=== PATIENT | female | born 1945 | race Caucasian/White ===

== ENCOUNTER → 2016-04-17 | Outpatient (CLI) | payer OTHER ==
--- NOTE | 2016-04-17 17:33 | MA ---
Screening Digital Mammogram With iCAD Analysis Clinical Indications: Routine screening. Technique: Standard cephalocaudal projections are obtained. Digital breast tomosynthesis was performe d in the MLO projection with reconstruction at 1.0 mm slice thickness and composite MLO views reconst ructed. This examination is processed by the iCAD computer aided detection system. Comparison: April 2015, March 2014, March 2013, February 2012, February 2011, January 2010, S isiah 2008. Left breast ultrasound May 04, 2015. Breast density: Type B; Scattered fibroglandular densities. Findings: CAD was reviewed. No spiculated masses, suspicious calcifications or secondary signs of mal ignancy are seen. There has been no significant change in the appearance of either breast. Nodular ar ea in the upper-outer left breast which was demonstrated to represent a cyst is unchanged. Impression: Benign mammography, BI-RADS 2. Recommendation: Routine mammographic screening in one year as long as physical examination is negativ [facility] will send a result letter to the patient. Negative mammography should not preclude additional workup of a clinically suspicious finding. The patient's information is entered into a reminder system with a target due date for her next mammo gram.
== END ==
LOC: FIMAGING 14:44
DX: Z12.31 Encounter for screening mammogram for malignant neoplasm of breast (principal)
CPT/HCPCS: G0202

== ENCOUNTER 2016-12-12 05:55 | Inpatient (IN) | payer OTHER ==
[2016-12-12] MEDS ORDERED: TRANEXAMIC ACID 1,300 MG in NS 100 ML IV ONE (06:00)
[2016-12-12] MEDS ORDERED: ROPIVACAINE 0.2% 80 MG, EPINEPHrine 0.2 MG in BAG 0 ML IU ONE (06:00)
[2016-12-12] MEDS ORDERED: FAMOTIDINE 20 MG TAB PO ONE (06:08)
[2016-12-12] MEDS ORDERED: ACETAMINOPHEN 325 MG TAB PO ONE (06:08)
[2016-12-12] MEDS ORDERED: ceFAZolin 2 GM/DEXTROSE 100 ML IV ONE (06:08)
[2016-12-12] MEDS ORDERED: POVIDONE-IODINE 20 ML in SODIUM CL IRRIG SOLUTION 500 ML IRR ONE (06:08)
[2016-12-12] MEDS ORDERED: DEXAMETHASONE 4 MG/ML VIAL IVP ONE (06:08)
[2016-12-12] MEDS ORDERED: LIDOCAINE 1% 2 ML INJ ID PRN (06:09)
[2016-12-12] MEDS ORDERED: LR 1,000 ML IV ONE (06:09)
[2016-12-12] MEDS ORDERED: ceFAZolin 1 GM/5 ML SYR ONE (06:34)
[2016-12-12] MEDS ORDERED: DIPHENOXYLATE/ATROPINE LOMOTIL 1 TAB PO PRN (07:01)
[2016-12-12] MEDS ORDERED: BISACODYL 10 MG SUPP PR PRN (07:01)
[2016-12-12] MEDS ORDERED: ONDANSETRON 4 MG/2 ML VIAL IVP PRN ×2 (07:01→08:41)
[2016-12-12] MEDS ORDERED: ONDANSETRON DISINTEGRATING 4 MG TAB PO PRN (07:01)
[2016-12-12] MEDS ORDERED: MIDAZOLAM 2 MG/2 ML VIAL IVP ONE (07:01)
[2016-12-12] MEDS ORDERED: TEMAZEPAM 15 MG CAP PO PRN (07:01)
[2016-12-12] MEDS ORDERED: POLYETHYLENE GLYCOL 3350 17 GM PKT PO PRN (07:01)
[2016-12-12] MEDS ORDERED: MAGNESIUM HYDROXIDE 30 ML UDCUP PO PRN (07:01)
[2016-12-12] MEDS ORDERED: PROMETHAZINE HCL 25 MG/ML INJ IVP PRN (07:01)
[2016-12-12] MEDS ORDERED: diphenhydrAMINE 25 MG CAP PO PRN (07:01)
[2016-12-12] MEDS ORDERED: LACTULOSE 20 GM/30 ML UDCUP PO PRN (07:01)
--- NOTE | 2016-12-12 07:01 | PDHPUP ---
History & Physical Update H&P update statement: This history and physical update is based on an assessment of the patient which was completed after admission or registration (within 24 hours), but prior to the surgery/procedure. H&P update: H&P reviewed & patient examined, no change in patient's condition since H&P completed
--- NOTE | 2016-12-12 07:01 | PDANEPAE ---
ANE History of Present Illness 71 yo for chucho htn ANE Past Medical History - Cardiovascular History Hx Hypertension: Yes Hx Arrhythmias: No Hx Chest Pain: No Hx Coronary Artery / Peripheral Vascular Disease: No Hx CHF / Valvular Disease: No Hx Palpitations: No - Pulmonary History Hx COPD: No Hx Asthma/Reactive Airway Disease: No Hx Recent Upper Respiratory Infection: No Hx Oxygen in Use at Home: No Hx Sleep Apnea: No Sleep Apnea Screening Result - Last Documented: Negative - Neurologic History Hx Cerebrovascular Accident: No Hx Seizures: No Hx Dementia: No - Endocrine History Hx Diabetes: No Endocrine History Comment: "watching thyroid" -nodule - Renal History Hx Renal Disorders: No - Liver History Hx Hepatic Disorders: No - Neurological & Psychiatric Hx Hx Neurological and Psychiatric Disorders: Yes Neurological / Psychiatric History Comment: 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 - Cancer History Hx Cancer: No - Congenital Disorder History Hx Congenital Disorders: No - GI History Hx Gastrointestinal Disorders: Yes Gastrointestinal History Comment: acid reflux-on Rx - Other Health History Other Health History: OA Left hip; knees -OA; nasocort - allergies? - Chronic Pain History Chronic Pain: No - Surgical History Prior Surgeries: L achilles tendon -2008. L peronius longus ligament s '12. hysterectomy 1994. R bunionectomy ' ANE Review of Systems Review of Systems: - Exercise capacity METS (RN): 4 METS ANE Patient History - Allergies Allergies/Adverse Reactions: NSAIDS (Non-Steroidal Anti-Inflamma Allergy (Severe, Verified 12/12/16 06:14) Other-Enter Comments - Home Medications Home medications: home medication list seen and reviewed Home Medications: Acetaminophen [Tylenol 325mg (*)] 4 tab PO TID 11/23/16 [Last Taken 12/11/16 21: 00] Cholecalciferol Vit D3 [Vitamin D3 (*)] 5,000 units PO DAILY 11/23/16 [Last Taken 12/05/16] Citalopram Hydrobromide [Citalopram HBr] 60 mg PO DAILY 11/23/16 [Last Taken 09/22 05:15] Herbals/Supplements -Info Only 1 ea PO DAILY 11/23/16 [Last Taken 12/05/16] Lisinopril/Hctz 20/12.5MG [Zestoretic/Prinzide 20/12.5MG (*)] 1 ea PO DAILY18 [Last Taken 12/11/16 08:00] Omeprazole [Prilosec 20 mg] 20 mg PO DAILY 11/23/16 [Last Taken 12/12/16 05:15] Triamcinolone Acetonide [Nasacort] 1 spray EACHNARE HS 11/23/16 [Last Taken 08/22 21:00] traMADol [Ultram 50 mg (*)] 50 mg PO HS PRN 11/23/16 [Last Taken 12/09/16] - NPO status NPO Status: no food or drink >8 hours NPO Since - Liquids (Date): 12/11/16 NPO Since - Liquids (Time): 20:00 NPO Since - Solids (Date): 12/11/16 NPO Since - Solids (Time): 20:00 - Anes Hx Anes Hx: no prior problems - Smoking Hx Smoking Status: Never smoked ANE Labs/Vital Signs - Vital Signs Blood Pressure: 107/64 Heart Rate: 65 Respiratory Rate: 16 O2 Sat (%): 93 Height: 5 ft 5 in Weight: 65.771 kg ANE Physical Exam - Airway Neck exam: FROM Mallampati Score: Class 2 Mouth exam: normal dental/mouth exam - Pulmonary Pulmonary: no respiratory distress - Cardiovascular Cardiovascular: regular rate and rhythym - ASA Status ASA Status: II ANE Anesthesia Plan Anesthesia Plan: spinal
[2016-12-12] MEDS ORDERED: traMADol 50 MG TAB PO PRN (07:06)
[2016-12-12] MEDS ORDERED: PROPOFOL/EMULSION 500 MG/50 ML BOTTLE IV ONE ×3 (07:13→08:27)
[2016-12-12] MEDS ORDERED: TRANEXAMIC ACID 650 MG TAB PO SCH (07:15)
[2016-12-12] MEDS ORDERED: LR 1,000 ML IV SCH (07:30)
[2016-12-12] MEDS ORDERED: fentaNYL 100 MCG/2 ML INJ ONE ×3 (07:40→09:54)
[2016-12-12] MEDS ORDERED: HYDROmorphONE/DILAUDID 1 MG/ML SYR IVP PRN (08:41)
[2016-12-12] MEDS ORDERED: NALOXONE HCL 0.4 MG/ML INJ IVP PRN (08:41)
--- NOTE | 2016-12-12 08:55 | POSTOPPROG ---
Post Op Note Date of Operation: 12/12/16 Surgeon: Arthur Dorsey Marker Shipments: Venkatesh Mott/Sydnee Choi Anesthesiologist: Kelby Anesthesia: IV Sedation, Spinal Post-op Diagnosis: Left hip severe degenerative arthritis. Inf/Abcess present in the surg proc area at time of surgery?: No EBL: 100-500
[2016-12-12] MEDS ORDERED: FAMOTIDINE 20 MG TAB PO SCH (09:00)
[2016-12-12] MEDS ORDERED: CITALOPRAM HYDROBROMIDE 60 MG PO SCH (09:00)
--- NOTE | 2016-12-12 09:10 | POSTANESTH ---
Post Anesthetic Evaluation Cardiovascular Status: Normal, Stable Respiratory Status: Normal, Stable Level of Consciousness/Mental Status: Can Participate in Eval Pain Control: Adequate, Prn Tx Ordered Nausea/Vomiting Control: Adequate, Prn Tx Ordered
[2016-12-12] MEDS: fentaNYL 100 MCG/2 ML INJ IVP PRN ×4 (09:26→10:08)
--- NOTE | 2016-12-12 09:35 | GOP ---
[f rep st] OPERATIVE REPORT DATE OF OPERATION: 12/12/2016 SURGEON: Arthur Dorsey MD CHARGE AUDITOR: Venkatesh Mott CFA, and Sydnee Choi RN. ANESTHESIA: A combination of Marcaine, spinal, and IV sedation. ANESTHESIOLOGIST: Dr. Lama. PREOPERATIVE DIAGNOSIS: Left hip severe degenerative arthritis. POSTOPERATIVE DIAGNOSIS: Left hip severe degenerative arthritis. PROCEDURE PERFORMED: Left total hip arthroplasty, ceramic femoral head on highly cross-linked polyet hylene cup liner. FINDINGS: DESCRIPTION OF PROCEDURE: The patient was given 2 g of IV Ancef preoperatively within 60 minutes of surgery. She also received IV tranexamic acid at a dose of 20 mg/kg. She was placed on the operatin g room table and given spinal anesthesia with Marcaine by Dr. Lama. She was then placed supine a nd given IV sedation. A Dillard catheter was not used. She wore a EDA stocking and an SCD on the nono perative leg. She was rolled to the left lateral decubitus position. The position was secured with the pegboard table attachment. An axillary roll was used, and all pressure points were carefully pad ded. I was careful to lock her pelvis in a rigid vertical position. Her perineum was isolated with plastic adhesive drapes. The left hip and left lower extremity were prepped with ChloraPrep. They w ere draped free using sterile sheets, stockinette, and Ioban plastic drapes. The [employer] time-out was performed to verify the correct surgical side and site, an d the correct patient identity. The [place] time-out was also performed. I made a 4- to 5-inch straight oblique posterolateral hip skin incision. Subcutaneous tissues were s harply divided, and hemostasis was obtained using electrocautery. The fascia anastacio was identified and split along the axis of its fibers. I curved posteriorly and proximally, and split the fascia of th e gluteus deny, and bluntly split the muscle fibers in line with their orientation. The Charnley self-retaining retractor was inserted. Her sciatic nerve was located, partially exposed, and protect ed throughout the procedure. The external rotators and the posterior hip capsule were divided as sep arate layers at the base of the femoral neck, tagged, and reflected posteriorly. A smooth 1/8-inch S teinmann pin was inserted vertically into the ilium, superior to the acetabulum. A 1/8-inch drill bi t was inserted vertically into the greater trochanter and parallel to the first pin. The distance be tween the 2 was measured for leg length reference. Her femoral head was dislocated posteriorly. Sev ere degenerative changes were present on the femoral head. Her femoral neck was osteotomized at the appropriate level and inclination. I was careful to preserve all her posterior capsule and most of the anterior capsule. The remnant of her damaged labrum was excised. I prepared the femur first. This allowed me to certified nurses' aide the amount of natural femoral neck anteversion. This, in turn, allowed me to later determine the correct amount of cup anteversion. She had approx imately 12 to 15 degrees of natural femoral neck anteversion. Then, the canal was opened laterally w ith a box chisel. I hand-broached sequentially up to a size 5. I was using a Palma Accolade II st em. I used a size 5 broach as a trial stem. I was careful to lateralize adequately. Appropriate retractors were inserted to expose the acetabulum. The acetabulum was reamed sequentiall y up to 51 mm. I selected a 52 mm Brookside Tritanium solid-backed hemispherical shell. This was suzan ed securely into place in the proper degree of inclination and anteversion. I used a transverse acet abular ligament and other acetabular bony landmarks to help me properly orient the cup. Fixation was secure, and I did not think supplemental screws were necessary. I inserted a screw-in metal dome ho le plug. I removed some small anterior acetabular osteophytes with an osteotome and rongeur. I performed a series of trial reductions to determine length and stability. I concluded that the siz e 5 high-offset stem with a 0 mm neck length, a 32 mm head, and a 0-degree liner gave me the proper c ombination of appropriate length and good anterior and posterior stability. She was a few millimeter s short preoperatively, and I was intentionally lengthening her a small amount. The 0-degree Palma X3 highly cross-linked polyethylene liner was inserted and tapped securely into place. I selected the Brookside Accolade II stem in a size 5 with high offset. This was inserted pres s-fit and was very tight. I did 1 final trial reduction and confirmed that the 0 neck length with th e 32 mm head was the proper combination. The Brookside Biolox Delta ceramic head, with an outside diam eter of 32 mm and a neck length of 0 mm, was tapped securely onto the clean trunnion. The acetabulum was irrigated, cleaned, and the hip was reduced 1 final time. She had excellent anterior and posterior stability and appropriate lengthening. 40 mL of the joint anesthetic cocktail was injected into the capsule, the deep musculature, and the s ubcutaneous tissues around the skin edges. The joint was thoroughly irrigated 1 final time with a di lute Betadine solution. Her sciatic nerve was reinspected and looked unharmed. The external rotators and the posterior hip c apsule were repaired in separate layers with #2 FiberWire sutures through drill holes in the greater trochanter. This provided a strong posterior capsular and external rotator repair. The fascia anastacio was closed first with two #2 [id number] FiberWire sutures, followed by a running #2 barbed Ethic on Stratafix PDO suture. Subcutaneous tissues were closed with a running 0 barbed Ethicon Stratafix Monoderm suture. The skin was closed with a running 3-0 barbed Ethicon Stratafix Monoderm subcuticul ar suture. The skin edges were reapproximated and sealed with Dermabond glue. The wound was covered with a 9 cm x 25 cm AquacStemBioSys surgical dressing. A long-leg EDA stocking and SCD were applied to her right lower extremity. She wore a stocking and S CD on the opposite leg during the procedure. An abduction pillow was placed between her knees. She was awakened from anesthesia and rolled to the supine position on her [facility]. She was taken to PACU in satisfactory condition. There were no recognized intraoperative complications. Her bloo d pressure was somewhat high during portions of the operation. She bled more than usual. The estima eda blood loss was about 400 mL. I used a Palma Tritanium hemispherical solid-backed acetabular shell with an outside diameter of 52 mm. The liner was a Palma X3 0-degree highly cross-linked liner with an inside diameter of 32 mm. The femoral component was a Brookside press-fit high-offset Accolade II stem in a size 5. Her femora l head was a Brookside Biolox Delta ceramic head, with a 0 neck length and a 32 mm outside diameter. Venkatesh Mott and Sydnee Choi acted as surgical assistants. Their assistance was a medical necessi ty for safe completion of the procedure. /[id number]/MODL
[2016-12-12] MEDS: TRANEXAMIC ACID 650 MG TAB PO SCH ×2 (11:18→20:15)
[2016-12-12] MEDS: oxyCODONE IR 5 MG TAB PO PRN ×5 (11:18→23:50)
[2016-12-12] MEDS: CITALOPRAM 20 MG TAB PO SCH (11:19)
[2016-12-12] MEDS: SENNOSIDES/DOCUSATE SODIUM TAB PO SCH ×2 (11:19→20:15)
[2016-12-12] MEDS: FERROUS SULFATE 140 MG TAB.ER PO SCH (11:19)
[2016-12-12] MEDS: CYCLOBENZAPRINE 10 MG TAB PO PRN ×2 (12:13→20:16)
[2016-12-12] MEDS: ceFAZolin 2 GM/DEXTROSE 100 ML IV SCH ×2 (14:08→21:30)
[2016-12-12] MEDS ORDERED: LISINOPRIL/HCTZ 20/12.5MG 1 EA TAB PO SCH (18:00)
[2016-12-12] MEDS: FAMOTIDINE 20 MG TAB PO SCH (20:15)
[2016-12-12] MEDS ORDERED: Triamcinolone Acetonide [Nasacort] 1 SPRAY EACHNARE SCH (21:00)
[2016-12-12] MEDS ORDERED: ASPIRIN 325 MG TAB PO SCH (21:00)
[2016-12-13] MEDS: oxyCODONE IR 5 MG TAB PO PRN (03:57)
[2016-12-13] MEDS: CYCLOBENZAPRINE 10 MG TAB PO PRN (03:57)
[2016-12-13] MEDS: TRANEXAMIC ACID 650 MG TAB PO SCH (03:57)
[2016-12-13 05:40] LABS: HEMATOCRIT 30.1 % (38.0-47.0); HEMOGLOBIN 10.4 g/dL (12.6-16.3)
[2016-12-13 07:57] VITALS: PULSE 86; RESP 14; TEMP 98.9; O2SAT 95
--- NOTE | 2016-12-13 08:03 | SOAPPROG ---
SOAP Progress Note Assessment/Plan: Assessment: Patient is doing well POD 1 s/p L MANPREET Pain management: pain is well controlled on oral pain meds. VTE ppx: recommend lovenox daily x 2 weeks, cont EDA and SCDs Anemia: level is expected initially postop. Asymptomatic. Continue to monitor D/c planning: d/c to home today pending release from PT Plan: 12/13/16 08:02 Objective: Vital Signs Temp Pulse Resp BP Pulse Ox 37.2 C 86 14 127/72 H 95 12/13/16 07:56 12/13/16 07:56 12/13/16 07:56 12/13/16 07:56 12/13/16 07:56 Laboratory Results 12/13/16 05:10 12/12/16 12/13/16 12/14/16 05:59 05:59 05:59 Intake Total 1450 Output Total 2450 Balance -1000 ICD10 Worksheet Patient Problems: Problems Problem Status Onset Osteoarthritis of left hip Acute
[2016-12-13] MEDS ORDERED: ENOXAPARIN 40 MG/0.4 ML SYR SC SCH (09:00)
[2016-12-13] MEDS ORDERED: LISINOPRIL/HCTZ 20/12.5MG 1 EA TAB PO SCH (09:00)
--- NOTE | 2016-12-13 09:09 | GDS ---
[f rep st] DISCHARGE SUMMARY ADMISSION DIAGNOSIS: Severe left hip osteoarthritis. DISCHARGE DIAGNOSIS: Severe left hip osteoarthritis. OPERATION PERFORMED: Left total hip arthroplasty, posterior approach. POSTOPERATIVE COMPLICATIONS: None. CONDITION ON DISCHARGE: Improved. HOSPITAL COURSE: The patient was admitted to the hospital on the day of surgery. Her admission CBC was normal. The same day, under a combination of IV sedation and Marcaine spinal anesthesia, the patient underwent a left total hip arthroplasty. A Dillard catheter was not used. The patient was treated with multimodal DVT prophylaxis, including Lovenox, SCDs , and EDA stockings. On the 1st postoperative day, her hemoglobin and hematocrit were 10.4 and 30.1. She did not require any transfusion. She was seen by Physical Therapy and made good progress with hip range of motion exercises and ambulation. By the time of discharge, she was independent with her walker and afebrile. DISPOSITION: The patient is discharged to her home. She will go directly to outpatient physical therapy in 10-14 days. Follow up with Dr. Dorsey in 3 weeks as planned. She has a prescription at home for oxycodone and tramadol. Zofran for nausea. Lovenox daily x14 days, since she is NSAID intolerant. She will call the office if she has any problems prior to her followup visit. /[id number]/MODL MTDD
[2016-12-13] MEDS: FERROUS SULFATE 140 MG TAB.ER PO SCH (09:39)
[2016-12-13] MEDS: FAMOTIDINE 20 MG TAB PO SCH (09:40)
[2016-12-13] MEDS: CITALOPRAM 20 MG TAB PO SCH (09:40)
[2016-12-13] MEDS: SENNOSIDES/DOCUSATE SODIUM TAB PO SCH (09:43)
[2016-12-13 09:46] VITALS: BP 103/67
--- NOTE | 2016-12-16 17:06 | ASDISCHSUM ---
Discharge Information Plan Status:Home with No Needs Medically Cleared to Leave:12/13/2016 Discharge Date:12/13/2016 11:59 AM CM D/C Disposition:Home, Routine, Self-Care ADT D/C Disposition:Home, Routine, Self-Care Projected Discharge Date:12/13/2016 11:59 AM Transportation at D/C: Discharge Delay Reason: Follow-Up Date:12/13/2016 11:59 AM Discharge Slot: Final Diagnosis: Placement Information Patient Contact Information Contact Name:OLIVIER Relationship: Address:[address] Work Phone: City:[place] Alternate Phone: State/Zip Code:[place] [address] Email: Financial Information Financial Class: Primary Plan Desc:MEDICARE INPATIENT Primary Plan Number:[id number] Secondary Plan Desc:[employer] Secondary Plan Number:[id number] Assessment Information [facility] CM Progress Note CM Note CM Note Notes: PT/OT clear pt for home. Pt medically stable for d/c, no CM d/c notes identified. Date Signed: 12/13/2016 10:46 AM Electronically Signed By:Nahomy Valenzuela Intervention Information
== END 2016-12-13 11:59 | disposition home or self-care (01) | DRG 470 ==
LOC: F3N 05:55
PROVIDERS: ADMIT Orthopaedic Surgery; ATTEND Orthopaedic Surgery
PROC: 0SRB04A Replacement of Left Hip Joint with Ceramic on Polyethylene Synthetic Substitute, Uncemented, Open Approach (ICD-10-PCS; principal; 2016-12-12 07:15)
DX: M16.12 Unilateral primary osteoarthritis, left hip (principal); M17.11 Unilateral primary osteoarthritis, right knee; M18.12 Unilateral primary osteoarthritis of first carpometacarpal joint, left hand; I10 Essential (primary) hypertension; K21.9 Gastro-esophageal reflux disease without esophagitis
CPT/HCPCS: 97116-GP; 97161-GP; 97165-GO; G8978-GP-CJ; G8979-GP-CI; G8980-GP-CI; G8987-GO-CI; G8988-GO-CI; G8989-GO-CI; J0171; J0690; J1100; J1650; J2250; J2704; J2795; J3010

== ENCOUNTER → 2017-04-18 | Outpatient (CLI) | payer OTHER | LOC: FIMAGING 13:33 | PROVIDERS: ATTEND Family Medicine | DX: Z12.31 Encounter for screening mammogram for malignant neoplasm of breast (principal) ==

== ENCOUNTER → 2018-04-22 | Outpatient (CLI) | payer OTHER | LOC: FIMAGING 13:58 | PROVIDERS: ATTEND Family Medicine | DX: Z12.31 Encounter for screening mammogram for malignant neoplasm of breast (principal) ==